=== PATIENT | male | born 1950 | race Caucasian/White ===

== ENCOUNTER 2022-05-03 13:31 | Emergency (ER) | payer MEDICARE, SELFPAY ==
[2022-05-03] VITALS (16 sets, daily range): BP systolic 127–137; BP diastolic 68–95; PULSE 63–83; RESP 11–18; TEMP 36.4; O2SAT 97–100
--- NOTE | 2022-05-03 13:37 | ECG_ITS ---
Measurements Intervals [place] Rate: 70 P: 42 WV: 170 QRS: 32 QRSD: 114 T: 2 QT: 415 QTc: 450 Interpretive Statements SINUS RHYTHM DELAYED PRECORDIAL R/S TRANSITION BORDERLINE ST-T WAVE ABNORMALITY- INFERIOR LEADS BORDERLINE ECG Electronically Signed On 05-03-2022 13:51:47 CDT by Donavan Lopez D.O.
[2022-05-03 14:00] LABS: Basophils Absolute Auto 0.1 K/mm3 (0.0-0.1); Basophils Percent Auto 1.2 % (0.2-1.2); Eosinophils Absolute Auto 0.2 K/mm3 (0-0.3); Eosinophils Percent Auto 4.3 % (0-4.4); Hematocrit 44.4 % (42.0-52.0); Hemoglobin 15.5 g/dL (14.0-18.0); Immature Granulocyte Absolute 0.01 K/mm3 (0.00-0.031); Immature Granulocyte Percent A 0.2 % (0-0.5); Lymphocytes Absolute Auto 1.07 K/mm3 (0.9-3.2); Lymphocytes Percent Auto 25.8 % (18.3-44.2); Mean Corpuscular HGB Conc 34.9 g/dl (32-36); Mean Corpuscular Hemoglobin 34.3 pg (26-34); Mean Corpuscular Volume 98.2 fl (80-100); Monocytes Absolute Auto 0.4 K/mm3 (0.1-0.6); Monocytes Percent Auto 10.6 % (2.6-8.5); Neutrophils Absolute Auto 2.4 K/mm3 (1.3-6.7); Neutrophils Percent Auto 57.9 % (45.5-73.1); Platelet Count Result 177 k/mm3 (150-375); Red Blood Count 4.52 M/mm3 (4.6-6.20); Red Cell Distribution Width 12.9 % (11.5-14.5); White Blood Count 4.2 K/mm3 (4.5-10.0)
[2022-05-03 14:10] LABS: Alanine Aminotransferase 21 U/L (6-50); Albumin Level 4.2 g/dL (3.5-5.1); Alkaline Phosphatase 49 U/L (38-126); Anion Gap 5 mmol/L (8-16); Aspartate Amino Transferase 32 U/L (17-59); Bilirubin,Total 0.6 mg/dL (0.2-1.3); Blood Urea Nitrogen 15 mg/dL (9-20); Calcium 8.9 mg/dL (8.4-10.2); Carbon Dioxide 30 mmol/L (22-30); Chloride 101 mmol/L (98-107); Estimated CRCL calculation 55 ml/min; Estimated Glomerular Filt Rate 60; Glucose 145 mg/dL (65-110); Potassium 4.5 mmol/L (3.4-5.0); Sodium 136 mmol/L (137-145)
[2022-05-03] MEDS: ONDANSETRON INJ 4 MG/2 ML VIAL IV PUSH (14:24)
[2022-05-03] MEDS: SODIUM CHLORIDE 0.9% IV 1,000 ML 999 ML IV CONT (14:24)
--- NOTE | 2022-05-03 14:57 | ED.DIZZY ---
HPI - Dizziness General Chief Complaint: Syncope Stated Complaint: DIZZY WHILE STANDING AT WORK Time Seen by Provider: 05/03/22 13:34 Source: patient and RN notes reviewed Mode of arrival: EMS Limitations: no limitations History of Present Illness HPI Narrative: This is a 72 year old male who presents for evaluation of dizziness. Patient states he woke up this morning feeling fine. he was at work and he started to feel nauseated and mildly dizzy. He stood up and his dizziness worsened. He states the dizziness made him stumble. He states he was old he was pale. He states he laid down and his dizziness continued for 45 minutes. His dizziness resolved by the time EMS arrived. He denies having associated headache, palpitations, chest pain, or shortness of breath. He states he drinks plenty of fluid and denies any reason to be dehydrated . He is healthy and active. He states he goes to gym and cycles regularly. He does not take any medications. Related Data Allergies Allergy/AdvReac Type Severity Reaction Status Date / Time No Known Allergies Allergy Unverified 05/03/22 13:30 Review of Systems Review of Systems: All systems reviewed & are unremarkable except as noted in HPI and below Constitutional: Constitutional: Denies chills, Denies fatigue and Denies fever(s) Eyes: Eyes: Denies change in vision and Denies photophobia ENT: Denies dysphagia and Denies vertigo Cardiovascular: Cardiovascular: Denies chest pain and Denies rapid heart rate Respiratory: Respiratory: Denies chest congestion and Denies cough Gastrointestinal: Gastrointestinal: Denies abdominal pain, Denies bloating, Denies diarrhea, Reports nausea and Denies vomiting Genitourinary: Genitourinary: Denies hematuria Musculoskeletal: Musculoskeletal: Denies back pain Neurologic: Reports dizziness, Denies syncope, Denies headache(s) and Denies focal weakness PMFSH Past Medical History Medical History (Updated 05/03/22 @ 16:26 by Gloria Ramos MD) Patient denies medical problems Family History Family History (Updated 06/18/14 @ 07:13 by DOCTOR UNKNOWN) Father Family history of primary malignant neoplasm of liver Sibling Family history of heart disease in male family member before age 55 Social History Social History Alcohol intake: current Exam Const: General: healthy appearing and no acute distress Nutritional Appearance: well nourished Orientation/consciousness: patient oriented x3 Limitations: no limitations HENMT: Head: normal to inspection Ears: TM abnormal obstructed by cerumen bilateral Face and sinus: normal facial exam Mouth: Yes Normal oral and palatal mucosa present Throat: posterior oropharynx normal and uvula midline Eyes: Conjunctivae: conjunctivae normal Pupils: Equal, round and reactive pupils present EOM: EOMs intact bilaterally Neck: Neck: normal visual inspection Chest: Chest palpation & inspection: normal inspection of the chest Resp: Effort & Inspection: normal respiratory effort Auscultation: clear to auscultation bilaterally Cardio: Rate: regular rate Rhythm: regular rhythm Heart sounds: no murmurs GI: GI Palp: Yes Soft to palpation, No Tenderness to palpation present (GI), No Guarding due to palpation present (GI) and No Rigid due to palpation Auscultation: normal bowel sounds Skin: General skin exam: normal color Rashes: no rashes Wounds: no wounds Neuro: General: patient oriented x3, moves all extremities, no meningeal signs, no focal motor deficits and CN's II-XI intact bilaterally Cranial nerves: Yes CN's II-XII intact bilaterally and Yes Nystagmus not present Speech: normal speech Motor exam (neuro): 5/5 motor strength present throughout Sensory Exam: normal sensation Coordination: [id number] test normal and [id number] test normal Extrem: General: normal to inspection Psych: Mental Status: mental status grossly normal Affect: normal affect Attitude: cooperative Co
[2022-05-03 15:17] LABS: Magnesium 2.1 mg/dL (1.6-2.3)
[2022-05-03 15:21] LABS: Appearance Urine Clear (Clear); Bilirubin Urine Negative (Negative); Blood Urine Negative (Negative); Color Urine Yellow (Yellow); Glucose Urine UA Negative (Negative); Ketones Urine Negative (Negative); Leukocyte Esterase Ur Negative LEU/UL (Negative); Nitrate Urine Negative (Negative); Protein Urine Negative (Negative); Urobilinogen Urine 0.2 mg/dL (<2.0)
[2022-05-03 15:23] LABS: Add Urine Microscopic? NO
[2022-05-03 15:30] LABS: Troponin I < 0.012 ng/mL (0.000-0.034)
== END 2022-05-03 16:37 | disposition home or self-care (01) ==
PROVIDERS: Emergency Medicine; Emergency Provider General Practice; PCP Internal Medicine
DX: R55 Syncope and collapse (principal)
CPT/HCPCS: 36415; 80053; 81003; 83735; 84484; 85025; 93005; 96361; 96374; 99284; J2405; J7030

== ENCOUNTER 2025-08-24 14:35 | Outpatient (CLI) | payer MEDICARE, SELFPAY | END 2025-08-24 14:36 | disposition home or self-care (01) | LOC: ANHAUDIO 14:35 | PROVIDERS: PCP Internal Medicine; Visit Provider Otolaryngology | DX: H93.19 Tinnitus, unspecified ear (principal); M25.462 Effusion, left knee; M71.22 Synovial cyst of popliteal space [Baker], left knee; S83.242D Other tear of medial meniscus, current injury, left knee, subsequent encounter; X58.XXXD Exposure to other specified factors, subsequent encounter | CPT/HCPCS: 92557; 92567 ==

== ENCOUNTER 2025-08-25 07:04 | Outpatient (CLI) | payer MEDICARE, SELFPAY ==
--- NOTE | ~2025-08-25 | MR_ITS ---
EXAMINATION: MR knee LT wo con DATE: 08/25/2025 07:35 INDICATION: Left knee pain. TECHNIQUE: Magnetic resonance imaging (MRI) of the left knee was performed without intravenous contrast. Sequences included axial PD-weighted FS FSE, coronal PD-weighted FSE and PD-weighted FS FSE, sagittal PD-weighted FSE, and sagittal T2-weighted FS FSE. COMPARISON: Left knee radiographs 08/04/2025 FINDINGS: Medial compartment: There is a vertical tear of medial meniscus at the junction of the body and posterior horn. There is cartilage surface irregularity of tibial condyle. The femoral cartilage is normal. Lateral compartment: Lateral meniscus is normal. There is shallow partial-thickness cartilage loss of femoral condyle involving the posterior articular surface with subchondral cysts and subchondral edema-like marrow signal intensity. The tibial cartilage is normal. Patellofemoral compartment: There is shallow partial-thickness cartilage loss of patellar medial facet with mild subchondral edema-like marrow signal intensity. There is deep partial- thickness cartilage loss of medial trochlea with subchondral cysts and mild subchondral edema-like marrow signal intensity. Ligaments and tendons: The anterior and posterior cruciate ligaments are normal. There are changes of prior sprains of medial collateral ligament and lateral collateral ligament characterized by thickening and increased signal intensity proximally. There is mild patellar tendinopathy. Fluid: There is a small knee joint effusion. There is a small Chamorro's cyst. There is mild superficial infrapatellar bursitis. IMPRESSION: 1. Moderate chondrosis of patellofemoral compartment and mild chondrosis of medial and lateral compartments. 2. Tear of medial meniscus. 3. Small knee joint effusion. 4. Small Chamorro's cyst. Reviewed, dictated and finalized at location [facility] IMPRESSION: 1. Moderate chondrosis of patellofemoral compartment and mild chondrosis of med ial and lateral compartments. 2. Tear of medial meniscus. 3. Small knee joint effusion. 4. Small Chamorro's cyst.
== END 2025-08-25 07:05 | disposition home or self-care (01) ==
LOC: MICIMG 07:05
PROVIDERS: PCP Internal Medicine; Visit Provider Orthopaedic Surgery
DX: M94.262 Chondromalacia, left knee (principal); S83.242A Other tear of medial meniscus, current injury, left knee, initial encounter; M25.462 Effusion, left knee; M71.22 Synovial cyst of popliteal space [Baker], left knee
CPT/HCPCS: 73721